=== PATIENT | male | born 1995 | race Caucasian/White ===

== ENCOUNTER 2018-08-02 11:11 | Emergency (ER) | payer OTHER ==
[2018-08-02 11:39] VITALS: BP 108/73
--- NOTE | 2018-08-02 12:18 | UC ---
Lower Extremity/Ankle HPI - HPI Summary HPI Summary: Pt does competitive weight lifting, has developed pain in R glute and upper posterior thigh over several months. Kept pushing through the pain, went to chiropractor once and thought it improved, but he thinks PT is probably a better idea. No low back pain or trouble with sensation, bowel or bladder. Pain only extends into mid hamstring. Denies numbness or tingling. Over the last week or so has not been able to do activities that make him bend at the hip. - History of Current Complaint Chief Complaint: UCLowerExtremity Stated Complaint: RIGHT LEG COMPLAINT Time Seen by Provider: 08/02/18 11:53 Hx Obtained From: Patient Onset/Duration: Gradual Onset, Lasting Weeks Severity Initially: Mild Severity Currently: Moderate Pain Intensity: 7 Aggravating Factor(s): Ambulation Able to Bear Weight: Yes - Allergies/Home Medications Allergies/Adverse Reactions: Allergies Allergy/AdvReac Type Severity Reaction Status Date / Time No Known Allergies Allergy Verified 08/02/18 11:34 Home Medications: Home Medications NK [No Home Medications Reported] 08/02/18 [History Confirmed 08/02/18] PMH/Surg Hx/FS Hx/Imm Hx Previously Healthy: Yes - Surgical History Surgical History: Yes Surgery Procedure, Year, and Place: Appendectomy, ~2015, [facility]; T&A, ~2001 , [facility] - Family History Known Family History: Negative: Seizure Disorder, Blood Disorder - Social History Occupation: Employed Part-time Alcohol Use: Occasionally Substance Use Type: None Smoking Status (MU): Never Smoked Tobacco Review of Systems Constitutional: Negative Skin: Negative Eyes: Negative ENT: Negative Respiratory: Negative Cardiovascular: Negative Gastrointestinal: Negative Genitourinary: Negative Motor: Negative Neurovascular: Negative Musculoskeletal: Decreased ROM, Myalgia Neurological: Negative Psychological: Negative Is Patient Immunocompromised?: No All Other Systems Reviewed And Are Negative: Yes Physical Exam Triage Information Reviewed: Yes Appearance: Well-Appearing, Well-Nourished, Pain Distress - mild Vital Signs: Initial Vital Signs Temp 98.1 F 08/02/18 11:34 Pulse 82 08/02/18 11:34 Resp 16 08/02/18 11:34 BP 108/73 08/02/18 11:34 Pulse Ox 100 08/02/18 11:34 Vital Signs Reviewed: Yes Eye Exam: Normal Eyes: Positive: Conjunctiva Clear ENT Exam: Normal ENT: Positive: Normal ENT inspection, Hearing grossly normal, Pharynx normal, TMs normal Neck exam: Normal Neck: Positive: Supple Respiratory Exam: Normal Respiratory: Positive: Chest non-tender, Lungs clear, Normal breath sounds Cardiovascular Exam: Normal Cardiovascular: Positive: RRR, No Murmur Musculoskeletal: Positive: ROM Limited @ - R hip flexor, painful into R ham string Neurological Exam: Normal Neurological: Positive: Alert Psychological Exam: Normal Skin Exam: Normal Lower Extremity Course/Dx - Differential Dx/Diagnosis Provider Diagnoses: R gluteal strain. R piriformis strain Discharge - Sign-Out/Discharge Documenting (check all that apply): Patient Departure All imaging exams completed and their final reports reviewed: No Studies - Discharge Plan Condition: Stable Disposition: HOME Patient Education Materials: Muscle Strain (ED), Piriformis Syndrome (ED) Referrals: No Primary Care Phys,NOPCP [Primary Care Provider] - Additional Instructions: Take ibuprofen or naproxen for the next few days, and try not to do anything that makes the muscles hurt. Please follow up with physical therapy. - Billing Disposition and Condition Condition: STABLE Disposition: Home
== END 2018-08-02 12:19 | disposition home or self-care (01) ==
LOC: UCCORT 11:11 → EDBD 11:11 → UCCORT 12:19
DX: S76.811A Strain of other specified muscles, fascia and tendons at thigh level, right thigh, initial encounter (principal); X50.0XXA Overexertion from strenuous movement or load, initial encounter; Y93.79 Activity, other specified sports and athletics; Y92.9 Unspecified place or not applicable
CPT/HCPCS: 99202; G0463